=== PATIENT | female | born 1995 | race Hispanic/Latino ===

== ENCOUNTER 2017-06-12 14:17 | Outpatient (CLI) | payer OTHER ==
[2017-06-12 15:29] LABS: Hematocrit 39.1 % (36.0-47.0)
== END 2017-06-12 14:18 | disposition home or self-care (01) ==
LOC: LABBT 14:17
PROVIDERS: ATTEND Otolaryngology Plastic Surgery within the Head & Neck
DX: Z01.818 Encounter for other preprocedural examination (principal); S02.2XXA Fracture of nasal bones, initial encounter for closed fracture; J34.2 Deviated nasal septum; J34.3 Hypertrophy of nasal turbinates; R09.81 Nasal congestion
CPT/HCPCS: 84703; 85014

== ENCOUNTER → 2017-06-14 | Day surgery (SDC) | payer OTHER ==
[2017-06-12 14:55] VITALS: BMI 25.2
[~2017-06-14] MED LIST: Bacitracin Zinc Ointment 30 gm TUBE ONE; Fentanyl 250 MCG/5 ML VIAL ONE; Hydrocodone-Acetamin 15 ML UDCUP ONE; Lidocaine 1% w/Epinephrine 1:200K 30 ML VIAL ONE; Midazolam HCl 2 mg/2 ml Vial ONE; Oxymetazoline HCl 0.05% ( 15 ML ) ONE
--- NOTE | 2017-06-14 18:22 | OP ---
DATE OF SURGERY: 06/14/2017 PREOPERATIVE DIAGNOSES: 1. Acquired nasal deformity. 2. Nasal septal deviation. 3. Bilateral inferior turbinate hypertrophy. 4. Nasal obstruction. POSTOPERATIVE DIAGNOSES: 1. Acquired nasal deformity. 2. Nasal septal deviation. 3. Bilateral inferior turbinate hypertrophy. 4. Nasal obstruction. PROCEDURES: 1. Open septal rhinoplasty. 2. Bilateral inferior turbinate submucosal resection. SURGEON: Troy Curry M.D. ESTIMATED BLOOD LOSS: 5 mL. COMPLICATIONS: None. ANESTHESIA: GETA. PROCEDURE IN DETAIL: The patient was taken to the operating room and placed on the table. General e ndotracheal anesthesia was obtained by the Anesthesia staff. Tube was secured in the left lower lip. The patient was then placed in the beach chair position. Afrin pledgets were placed in the nasal c avity. The patient was then prepped and draped for standard nasal procedure. Following this, Afrin pledgets were removed. 1% lidocaine with 1:100,000 epinephrine was injected in the columella and the inferior turbinates bilaterally. Following this, due to the severe caudal deflection, the caudal ca rtilage strut had already previously been retracted from the lower lateral cartilages; therefore, a h emitransfixion incision was made on the left side and a pocket was made between the lower lateral cru ra. Following this, submucoperichondrial dissection was performed bilaterally exposing the nasal sep cullen. The deviated portions of the cartilaginous bony septum were removed. There was very little rem nant cartilage that was straight. A 1.5 cm x 8 mm strut was used and placed within the pocket betwee n the lower lateral crura. A 3-0 Monocryl stitch was used to secure the lower lateral cartilages in mattress fashion. Following this, lateral osteotomies, medial osteotomies and lateral osteotomies of the nasal bones were made and the nasal bone and the remnant of the septum was then mobilized. The nasal bone was then replaced in their normal anatomic position in a symmetrical fashion and the mucop erichondrial flaps were then reapproximated using a gut stitch. Following this, the inferior turbina patricia were punctured on their anterior inferior aspect with the submucosal microdebrider and submucosal resection was performed of the anterior inferior portions of the inferior turbinates bilaterally. T he patient tolerated the procedure well.
== END ==
LOC: SDC 08:51
PROVIDERS: ATTEND Otolaryngology Plastic Surgery within the Head & Neck
PROC: 09TL7ZZ Resection of Nasal Turbinate, Via Natural or Artificial Opening (ICD-10-PCS; principal; 2017-06-14)
PROC: 09RM07Z Replacement of Nasal Septum with Autologous Tissue Substitute, Open Approach (ICD-10-PCS; principal; 2017-06-14)
DX: J34.2 Deviated nasal septum (principal); J34.3 Hypertrophy of nasal turbinates; R12 Heartburn; J30.2 Other seasonal allergic rhinitis; Z88.2 Allergy status to sulfonamides
CPT/HCPCS: J2250; J3010